=== PATIENT | male | born 1995 | race Caucasian/White ===

== ENCOUNTER 2017-10-05 12:20 | Emergency (ER) | payer OTHER ==
[2017-10-05 12:41] VITALS: BP 109/65; PULSE 80; TEMP 98; BMI 20.3
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
[2017-10-05] MEDS ORDERED: IBUPROFEN 400 MG TABLET (FP) PO ONE ×2 (15:04→15:06)
--- NOTE | 2017-10-07 12:44 | EKG ---
Test Reason : Blood Pressure : / mmHG Vent. Rate : 058 BPM Atrial Rate : 058 BPM P-R Int : 136 ms QRS Dur : 082 ms QT Int : 366 ms P-R-T Axes : 074 060 045 degrees QTc Int : 359 ms SINUS BRADYCARDIA OTHERWISE NORMAL ECG WHEN COMPARED WITH ECG OF 28-APR-2015 20:01, NO SIGNIFICANT CHANGE WAS FOUND Confirmed by JORJE BEE MD ([id number]) on 10/07/2017 12:43:35 PM Referred By: Confirmed By:JORJE BEE MD
== END 2017-10-05 17:16 | disposition home or self-care (01) ==
LOC: JERFT 12:20
DX: R07.89 Other chest pain (principal); V09.29XA Pedestrian injured in traffic accident involving other motor vehicles, initial encounter; Y92.414 Local residential or business street as the place of occurrence of the external cause; Y93.51 Activity, roller skating (inline) and skateboarding; Y99.8 Other external cause status
CPT/HCPCS: 71101-TC; 93005; 93010; 99281-25

== ENCOUNTER 2022-03-26 16:31 | Emergency (ER) | payer OTHER ==
[2022-03-26 16:43] VITALS: BP 120/84; PULSE 95; TEMP 98.6; BMI 22.8
== END 2022-03-26 17:45 | disposition home or self-care (01) ==
LOC: JER 16:31
DX: M94.0 Chondrocostal junction syndrome [Tietze] (principal)
CPT/HCPCS: 71046-TC-FY; 93005; 93010; 99283-25

== ENCOUNTER 2022-10-01 20:54 | Emergency (ER) | payer OTHER ==
[2022-10-01 21:23] VITALS: BP 134/83; PULSE 75; RESP 20; TEMP 98.7; BMI 22.8
[2022-10-01] MEDS ORDERED: METOCLOPRAMIDE HCL INJECTION 10 MG/2 ML VIAL IVPUSH ONE (23:21)
[2022-10-01] MEDS ORDERED: ACETAMINOPHEN 1000 MG/100 ML BAG IVPB ONE (23:21)
[2022-10-01] MEDS ORDERED: ACETAMINOPHEN INJECTION 100 ML IVPB ONE (23:42)
[2022-10-01] MEDS ORDERED: METOCLOPRAMIDE HCL INJECTION 10 MG/2 ML VIAL ONE (23:42)
[2022-10-02] MEDS ORDERED: SODIUM CHLORIDE 1,000 ML IV STA (00:27)
[2022-10-02 00:29] LABS: BASO % 0.6 % (0-2.0); EOS % 2.3 % (0-4.5); HEMATOCRIT 48.1 % (35.4-49); HEMOGLOBIN 16.3 GM/dL (11.7-16.9); LYMPH % 31.4 % (8-40); MCH 32.2 pg (25.7-33.7); MCHC 33.9 g/dl (32.0-35.9); MEAN PLT VOLUME 8.9 fl (7.5-11.1); MONO % 5.3 % (3.8-10.2); NEUT % 60.4 % (42.8-82.8); PLATELET COUNT 208 10^3/uL (134-434); RBC 5.06 M/mm3 (4.00-5.60); RDW 13.8 % (11.9-15.9)
[2022-10-02 00:48] LABS: ALBUMIN 4.2 g/dl (3.4-5.0); CALCIUM 8.5 mg/dL (8.5-10.1)
[2022-10-02 00:49] LABS: BLOOD UREA NITROGEN 15.4 mg/dL (7-18)
[2022-10-02 00:51] LABS: CREATININE 1.1 mg/dL (0.55-1.3)
[2022-10-02 01:00] LABS: BILIRUBIN,TOTAL 0.6 mg/dL (0.2-1)
[2022-10-02 01:11] LABS: INR 1.04 (0.83-1.09); PROTHROMBIN TIME (PATIENT) 11.9 SEC (9.7-13.0)
== END 2022-10-02 02:09 | disposition home or self-care (01) ==
LOC: JER 20:54 → JERFT 20:54 → JER 10-02 02:09
PROC: 3E033GC Introduction of Other Therapeutic Substance into Peripheral Vein, Percutaneous Approach (ICD-10-PCS; principal; 2022-10-01)
DX: G44.209 Tension-type headache, unspecified, not intractable (principal)
CPT/HCPCS: 36415; 70450-TC; 80053; 85025; 85610; 85730; 99285-25